=== PATIENT | female | born 1990 | race African-American/Black ===

== ENCOUNTER → 2017-11-29 | Outpatient (REF) ==
[2017-12-05 10:43] LABS: QUANTIFERON GOLD TB Negative (Negative); TB Test (QFT) Antigen 0.45 IU/mL (.); TB Test (QFT) Antigen Minus Ni 0.24 IU/mL (.); TB Test (QFT) Mitogen 6.74 IU/mL (.); TB Test (QFT) Nil 0.21 IU/mL (.)
== END ==
LOC: M LAB 10:36
DX: Z00.00 Encounter for general adult medical examination without abnormal findings (principal)

== ENCOUNTER → 2018-06-12 | Outpatient (CLI) | payer MEDICAID ==
[2018-06-12 15:27] LABS: BASO % 0.4 % (0.0-1.0); EOS % 0.5 % (0.0-3.0); HEMATOCRIT 32.3 % (36.0-47.0); HEMOGLOBIN 10.9 g/dl (12.0-15.5); LYMPH # 1.9 10^3/uL (1.5-4.5); LYMPH % 33.2 % (24.0-44.0); MEAN CORPUSCULAR HGB CONC 33.7 g/dl (32.0-36.5); MEAN CORPUSCULAR VOLUME 85.9 fl (80.0-96.0); MONO # 0.6 10^3/uL (0.0-0.8); MONO % 10.2 % (0.0-5.0); NEUTROPHILS # 3.2 10^3/uL (1.8-7.7); NEUTROPHILS % 55.3 % (36.0-66.0); PLATELET COUNT, AUTOMATED 205 10^3/uL (150-450); RED BLOOD COUNT 3.76 10^6/uL (4.00-5.40); WHITE BLOOD COUNT 5.7 10^3/uL (4.0-10.0)
[2018-06-12 15:31] LABS: APPEARANCE, URINE CLEAR (CLEAR); BACTERIA, URINE AUTO NEGATIVE (NEGATIVE); BILIRUBIN, URINE AUTO NEGATIVE (NEGATIVE); BLOOD, URINE BLOOD NEGATIVE (NEGATIVE); COLOR, URINE STRAW (YELLOW); GLUCOSE, URINE (UA) AUTO NEGATIVE (NEGATIVE); KETONE, URINE AUTO NEGATIVE (NEGATIVE); LEUKOCYTE ESTERASE, URINE AUTO NEGATIVE (NEGATIVE); NITRITE, URINE AUTO NEGATIVE (NEGATIVE); PROTEIN, URINE AUTO NEGATIVE (NEGATIVE); RBC, URINE AUTO 1 /HPF (0-3); SPECIFIC GRAVITY URINE AUTO 1.003 (1.002-1.035); SQUAMOUS EPITHELIAL CELL UR AU 1 /HPF (0-6); UROBILINOGEN, URINE AUTO 0.2 mg/dL (0.0-2.0); WBC, URINE AUTO 2 /HPF (0-3)
[2018-06-12 15:54] LABS: ALBUMIN 3.1 GM/DL (3.2-5.2); ALT/SGPT 11 U/L (12-78); BILIRUBIN,DIRECT < 0.1 MG/DL (0.0-0.2); BILIRUBIN,TOTAL 0.1 MG/DL (0.2-1.0); BLOOD UREA NITROGEN 8 MG/DL (7-18); CREATININE FOR GFR 0.41 MG/DL (0.55-1.30); GLOMERULAR FILTRATION RATE > 60.0 (>60); TOTAL PROTEIN 7.1 GM/DL (6.4-8.2); URIC ACID 2.4 MG/DL (2.6-6.0)
[2018-06-13 10:39] LABS: RUBELLA IgG QUALITATIVE IMMUNE (IMMUNE)
[2018-06-13 10:40] LABS: HEPATITIS B SURFACE ANTIGEN NEGATIVE (NEGATIVE)
[2018-06-13 11:08] LABS: HIV 1&2 SCREEN CENTAUR NEGATIVE (NEGATIVE)
== END ==
LOC: M LAB 14:53
PROVIDERS: ATTEND Nurse Practitioner Adult Health
DX: Z34.81 Encounter for supervision of other normal pregnancy, first trimester (principal); Z3A.00 Weeks of gestation of pregnancy not specified

== ENCOUNTER 2018-07-24 13:49 | Outpatient (CLI) | payer MEDICAID ==
[~2018-07-24] VITALS: Ht 165.1 cm; Wt 85.3 kg
[2018-07-24 14:07] VITALS: BP 119/68
[2018-07-24] MEDS ORDERED: MIRA3350 PO (14:11)
[2018-07-24] MEDS ORDERED: PRENTAB9 PO (14:11)
[2018-07-24] MEDS ORDERED: MACR100C43 PO (16:19)
--- NOTE | 2018-07-25 07:42 | NUR ---
L&D TRIAGE NOTE: S: 28yo At 24wks presents with cramping and dysuria. +fm, no vaginal bleeding, LOF or ctx. No f/c/n/v O: vss Gen: well appearing abd: gravid Urine: c/w UTI A/P: 28yo with UTI -macrobid 100MF BID -f/u with primary OB -PTL precautions Jeanne Peguero MD
== END 2018-07-24 16:15 | disposition home or self-care (01) ==
LOC: M LDO 13:49
PROVIDERS: ATTEND Obstetrics & Gynecology
DX: O26.852 Spotting complicating pregnancy, second trimester (principal); O23.42 Unspecified infection of urinary tract in pregnancy, second trimester; Z3A.24 24 weeks gestation of pregnancy

== ENCOUNTER 2018-10-30 22:10 | Outpatient (CLI) | payer OTHER ==
[~2018-10-30] VITALS: Ht 165.1 cm; Wt 88.8 kg
[~2018-10-30 22:10] MED LIST: MACR100C43 PO; MIRA3350 PO; PRENTAB9 PO
[2018-10-30 22:24] VITALS: BP 144/88
[2018-10-30] MEDS ORDERED: COLA100C5 PO (23:09)
--- NOTE | 2018-10-30 23:56 | REPVR ---
EXAM: US First Trimester, Transabdominal EXAM DATE/TIME: 10/30/2018 11:07 PM CLINICAL HISTORY: 28 years old, female; Abnormal findings; Abnormal radiologic study of abdomen/pelvis; ; Additional info: 28yo 38wks with recent demise. Confirm/growth TECHNIQUE: Imaging protocol: Real-time transabdominal obstetrical ultrasound of the maternal pelvis and a first trimester , less than 14 weeks 0 days, with image documentation. COMPARISON: No relevant prior studies available. FINDINGS: GESTATION: Gestation: Single intrauterine fetus. Question of edematous abdominal wall. Heart rate: No heartbeat is identified. Presentation: Cephalic presentation. Placenta: Anterior placenta. Amniotic fluid: Oligohydramnios with AGATHA of 1 cm. BIOMETRY: Estimated gestational age: The composite gestational age by ultrasound is 34 weeks 3 days. Estimated weight: The estimated weight is 2470 grams. Biparietal diameter: The BPD measures 8.7 cm suggesting an age of 35 weeks 2 days. Head circumference: The head circumference measures 30.4 cm suggesting an age of 33 weeks 6 days. Abdominal circumference: The abdominal circumference measures 30.2 cm suggesting an age of 34 weeks 1 day. Femur length: The femur length measures 6.8 cm suggesting an age of 34 weeks 5 days. MATERNAL: Uterus: Unremarkable. Cervix: The cervix measures 3.0 cm. IMPRESSION: 1. demise of 34 week 3 day gestation. 2. Oligohydramnios. Electronically signed by: Nicanor Shields On 10/30/2018 23:55:45 PM
== END 2018-10-31 00:30 | disposition home or self-care (01) ==
LOC: M LDO 22:10
PROVIDERS: ATTEND Obstetrics & Gynecology
DX: O36.80X0 Pregnancy with inconclusive fetal viability, not applicable or unspecified (principal); O36.4XX1 Maternal care for intrauterine death, fetus 1; Z3A.38 38 weeks gestation of pregnancy